=== PATIENT | female | born 1990 | race Caucasian/White ===

== ENCOUNTER 2019-03-22 15:12 | Emergency (ER) | payer BC, OTHER, SELFPAY ==
[~2019-03-22] VITALS: Ht 152.4 cm; Wt 49.1 kg
[~2019-03-22 15:12] MED LIST: /CIPR75TA; CIPR250T3; No Historical Meds; PERC5TAB8; TYLENOL #3; VICO5TAB; vesicare
[2019-03-22 18:15] LABS: BASO # 0.1 10^3/uL (0.0-0.2); BASO % 0.6 % (0.0-1.0); EOS # 0.1 10^3/uL (0.0-0.5); EOS % 0.9 % (0.0-3.0); HEMATOCRIT 44.7 % (36.0-47.0); HEMOGLOBIN 14.5 g/dl (12.0-15.5); LYMPH # 3.4 10^3/uL (1.5-5.0); LYMPH % 39.6 % (24.0-44.0); MEAN CORPUSCULAR HEMOGLOBIN 28.4 pg (27.0-33.0); MEAN CORPUSCULAR HGB CONC 32.4 g/dl (32.0-36.5); MEAN CORPUSCULAR VOLUME 87.6 fl (80.0-96.0); MONO # 0.6 10^3/uL (0.0-0.8); MONO % 7.5 % (0.0-5.0); NEUTROPHILS # 4.4 10^3/uL (1.5-8.5); NEUTROPHILS % 51.2 % (36.0-66.0); PLATELET COUNT, AUTOMATED 278 10^3/uL (150-450); WHITE BLOOD COUNT 8.6 10^3/uL (4.0-10.0)
[2019-03-22] MEDS ORDERED: IBUP-1022 PO (18:32)
[2019-03-22 18:56] LABS: BLOOD UREA NITROGEN 14 MG/DL (7-18); CALCIUM LEVEL 8.6 MG/DL (8.5-10.1); CARBON DIOXIDE LEVEL 27 MEQ/L (21-32); CHLORIDE LEVEL 109 MEQ/L (98-107); CREATININE FOR GFR 0.57 MG/DL (0.55-1.30); GLOMERULAR FILTRATION RATE > 60.0 (>60); GLUCOSE, FASTING 82 MG/DL (70-100); HCG, SERUM QUANTITATIVE 1549 MIU/ML; POTASSIUM SERUM 3.7 MEQ/L (3.5-5.1); SODIUM LEVEL 142 MEQ/L (136-145)
--- NOTE | 2019-03-22 20:26 | REPVR ---
PROCEDURE INFORMATION: Exam: US Duplex Artery or Vein of the Abdominal and/or Reproductive Organs, Limited Ovaries Exam date and time: 03/22/2019 7:21 PM Age: 28 years old Clinical indication: Lmp or gestational age (in weeks): ? ; Antepartum complications; Bleeding; ; Additional info: Passing clots/cramping TECHNIQUE: Imaging protocol: Real-time duplex ultrasound scan of the arterial or venous flow with dent scale, color Doppler flow and spectral waveform analysis with image documentation. Limited duplex exam focused on the ovaries. Duplex images required to evaluate for torsion and other vascular conditions. COMPARISON: No relevant prior studies available. FINDINGS: Right adnexa: Normal duplex of the ovary. Normal Doppler waveforms and color flow. No evidence of ovarian torsion. Left adnexa: Normal duplex of the ovary. Normal Doppler waveforms and color flow. No evidence of ovarian torsion. IMPRESSION: Normal duplex of the ovaries. No evidence of ovarian torsion. PROCEDURE INFORMATION: Exam: US First Trimester, Transabdominal and US , Transvaginal Exam date and time: 03/22/2019 7:21 PM Age: 28 years old Clinical indication: Lmp or gestational age (in weeks): ? ; Antepartum complications; Bleeding; ; Additional info: Passing clots/cramping TECHNIQUE: Imaging protocol: Real-time transabdominal obstetrical ultrasound of the maternal pelvis and a first trimester , less than 14 weeks 0 days, with image documentation. Transvaginal imaging was used for better evaluation of the fetus and adnexa. COMPARISON: No relevant prior studies available. FINDINGS: MATERNAL: Uterus: Transabdominally, the uterus measures 7.8 x 4.1 by 6.2 centimetres. Endovaginally, the uterus measures 8.2 x 4.4 by 5.5 cm. The endometrial stripe is heterogeneous in appearance and measures 1.3 cm in thickness. Scattered areas of blood flow noted within the endometrium on color Doppler examination. No intrauterine . Cervix: Unremarkable. Right adnexa: Transabdominally, the bladder is poorly distended which limits visualization of the uterus and adnexa. Transabdominally, small subcentimeter follicle seen in the right ovary. Endovaginally, the right ovary measures 2.2 by 2.6 x 1.6 cm. Rounded area isoechoic to the adjacent ovary and measuring 1.6 cm in maximum diameter with a hypervascular rim suggests a corpus luteum cyst. Arterial blood flow demonstrated to the right ovary on pulse Doppler examination. Left adnexa: Transabdominally, cyst in the left ovary measures 2.3 cm in diameter and there are multiple internal echoes. Endovaginally, the left ovary measures 3.6 x 2.2 by 2.4 cm and contains a simple follicle measuring 2.1 cm in maximum diameter. Arterial blood flow demonstrated in the left ovary on color Doppler examination. Intraperitoneal: No intraperitoneal free fluid. IMPRESSION: 1. No evidence of intrauterine . In the presence of a positive beta HCG, an empty uterus suggests the possibility of normal early intrauterine , recent miscarriage or ectopic .Serial beta HCG measurements and follow-up recommended 2. Small areas of blood flow within the endometrium could represent retained products of conception. Electronically signed by: Elvira Snow On 03/22/2019 20:25:31 PM
[2019-03-22 21:01] VITALS: BP 129/84
== END 2019-03-22 21:44 | disposition home or self-care (01) ==
LOC: M ED 15:12
DX: O03.9 Complete or unspecified spontaneous abortion without complication (principal); O26.839 Pregnancy related renal disease, unspecified trimester; Z87.442 Personal history of urinary calculi; Z91.89 Other specified personal risk factors, not elsewhere classified

== ENCOUNTER → 2019-09-29 | Outpatient (REF) | payer OTHER, BC ==
[~2019-09-29] MED LIST changes: +IBUP-1022 PO
== END ==
LOC: M LAB REF 13:31
PROVIDERS: ATTEND Dermatology
DX: D22.9 Melanocytic nevi, unspecified (principal)

== ENCOUNTER 2020-05-02 01:09 | Inpatient (IN) | payer BC, OTHER ==
[2020-05-02] VITALS (20 sets, daily range): BP systolic 107–164; BP diastolic 72–93
[~2020-05-02] VITALS: Ht 152.4 cm; Wt 48.1 kg
[2020-05-02] MEDS ORDERED: ETOMIDATE INJ 20MG/10ML VIAL IV STA (01:21)
[2020-05-02] MEDS ORDERED: ROCURONIUM BROMIDE 50 MG/5 ML VIAL IV SCH (01:25)
[2020-05-02] MEDS ORDERED: NS 1,000 ML IV ONE (01:35)
[2020-05-02] MEDS ORDERED: PROPOFOL 1,000 MG/100 ML VIAL As Ordered ONE (01:35)
[2020-05-02] MEDS ORDERED: propofoL 1,000 MG in IV 1 EA IV SCH ×4 (01:40→11:30)
[2020-05-02 01:47] LABS: BASO # 0.1 10^3/uL (0.0-0.2); BASO % 0.7 % (0.0-1.0); EOS # 0.1 10^3/uL (0.0-0.5); EOS % 0.7 % (0.0-3.0); HEMATOCRIT 46.7 % (36.0-47.0); HEMOGLOBIN 15.2 g/dl (12.0-15.5); LYMPH # 2.6 10^3/uL (1.5-5.0); LYMPH % 29.1 % (24.0-44.0); MEAN CORPUSCULAR HGB CONC 32.5 g/dl (32.0-36.5); MONO # 0.7 10^3/uL (0.0-0.8); MONO % 7.9 % (2.0-8.0); NEUTROPHILS # 5.5 10^3/uL (1.5-8.5); NEUTROPHILS % 61.3 % (36.0-66.0); PLATELET COUNT, AUTOMATED 337 10^3/uL (150-450); RED BLOOD COUNT 5.43 10^6/uL (4.00-5.40); WHITE BLOOD COUNT 8.9 10^3/uL (4.0-10.0)
[2020-05-02] MEDS ORDERED: ISOVUE-370 76% 100ML VIAL As Ordered ONE (02:01)
[2020-05-02 02:21] LABS: BLOOD UREA NITROGEN 8 MG/DL (7-18); CALCIUM LEVEL 9.6 MG/DL (8.5-10.1); CARBON DIOXIDE LEVEL 30 MEQ/L (21-32); CHLORIDE LEVEL 110 MEQ/L (98-107); CREATININE FOR GFR 0.71 MG/DL (0.55-1.30); GLOMERULAR FILTRATION RATE > 60.0 (>60); GLUCOSE, FASTING 105 MG/DL (70-100); POTASSIUM SERUM 4.5 MEQ/L (3.5-5.1); SODIUM LEVEL 145 MEQ/L (136-145)
[2020-05-02 02:22] LABS: ALBUMIN 4.6 GM/DL (3.2-5.2); ALT/SGPT 16 U/L (12-78); BILIRUBIN,DIRECT 0.1 MG/DL (0.0-0.2); BILIRUBIN,TOTAL 0.2 MG/DL (0.2-1.0); CK-MB VALUE MASS < 1.0 NG/ML (<3.6); CPK CREATINE PHOSPHOKINASE 97 U/L (26-192); ETHYL ALCOHOL (ETHANOL) 0.279 % (0.000-0.010); MB/CK RELATIVE INDEX 1.03 (< OR =4); TOTAL PROTEIN 8.1 GM/DL (6.4-8.2); TROPONIN I < 0.02 NG/ML (< 0.10)
[2020-05-02 02:25] LABS: AMPHETAMINES LEVEL URINE NEGATIVE (NEGATIVE); BARBITURATES URINE NEGATIVE (NEGATIVE); BENZODIAZEPINES URINE NEGATIVE (NEGATIVE); CANNABINOIDS URINE POSITIVE (NEGATIVE); COCAINE METABOLITE URINE NEGATIVE (NEGATIVE); METHADONE URINE NEGATIVE (NEGATIVE); OPIATES URINE NEGATIVE (NEGATIVE); PHENCYCLIDINE URINE NEGATIVE (NEGATIVE)
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
[2020-05-02 05:18] LABS: RSV AMPLIFICATION NEGATIVE (NEGATIVE)
[2020-05-02] MEDS ORDERED: D5W/0.45% SODIUM CHLORIDE 1,000 ML IV SCH (05:45)
[2020-05-02 06:17] LABS: ABG BASE EXCESS -1.2 (-2.0-2.0); ABG HCO3 21.8 MEQ/L (22.0-26.0); ABG O2 SATURATION 99.3 % (95.0-99.0); ABG PARTIAL PRESSURE CO2 31.7 mmHg (35.0-45.0); ABG PARTIAL PRESSURE O2 209.5 mmHg (75.0-100.0); ABG STANDARD HCO3 23.5 MEQ/L (22.0-26.0); ABG TOTAL CO2 22.8 MEQ/L (22.0-29.0); ABG pH (ARTERIAL) 7.455 UNITS (7.350-7.450)
[2020-05-02] MEDS: MIDAZOLAM INJ 2MG/2ML VIAL (J2250 PER 1MG) IV PRN ×7 (06:41→13:27)
[2020-05-02] MEDS: IPRATROPIUM 0.5MG/ALBUTEROL 2.5MG INH SOL UD 3ML (DUONEB) NEB SCH ×3 (07:11→15:38)
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
[2020-05-02] MEDS: propofoL 1,000 MG in IV 1 EA IV SCH ×2 (08:32→11:52)
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
[2020-05-02] MEDS ORDERED: PANTOPRAZOLE 40MG VIAL (C9113 PER 1) IV SCH (09:00)
[2020-05-02] MEDS ORDERED: CHLORHEXIDINE GLUCONATE 0.12 % 15ML UDC (PERIDEX ORAL RINSE) MT SCH (09:00)
[2020-05-02] MEDS: ENOXAPARIN 40MG/0.4ML SYRINGE (J1650 PER 10MG) SC SCH (09:24)
[2020-05-02] MEDS ORDERED: MORPHINE 2 MG/ML 1ML VIAL (J2270) IV PRN (11:45)
[2020-05-02 12:07] LABS: HEMATOCRIT 38.4 % (36.0-47.0)
[2020-05-02] MEDS ORDERED: ACETAMINOPHEN 325 MG/10.15 ML UDC NG PRN (12:10)
[2020-05-02 12:17] LABS: HEMOGLOBIN 12.8 g/dl (12.0-15.5)
[2020-05-02] MEDS ORDERED: NS 500 ML IV ONE (16:50)
[2020-05-02] MEDS: traMADol 50 MG TAB PO PRN (19:05)
[2020-05-02] MEDS ORDERED: D31000TA2 PO (19:54)
[2020-05-02] MEDS ORDERED: ULTR5TAB PO (19:54)
[2020-05-02] MEDS ORDERED: C 50TAB PO (19:54)
[2020-05-02] MEDS ORDERED: VITMTA PO (19:54)
--- NOTE | 2020-05-02 20:56 | IPNPDOC ---
Text Note Date of Service The patient was seen on 05/02/20. NOTE Per d/w nursing staff the patient was extubated transferred to our service by ; they report that she doesn't need ICU level of care and are requesting downgrade to med/sug. PE: pt appears comfortable is talking on the phone Vital Signs Date Time Temp Pulse Resp B/P (MAP) Pulse Ox O2 Delivery O2 Flow Rate FiO2 05/02/20 01:38 114 05/02/20 01:44 18 99 45 05/02/20 02:30 Ventilator 05/02/20 02:31 132/111 (118) 05/02/20 06:39 99.6 05/02/20 08:30 21.0 #Polysubstance abuse Plan: downgrade to med/surg tele / CIWA order set VS,Fishbone, I+O VS, Fishbone, I+O Laboratory Tests 05/02/20 01:29 05/02/20 11:58 Vital Signs Date Time Temp Pulse Resp B/P (MAP) Pulse Ox O2 Delivery O2 Flow Rate FiO2 05/02/20 19:05 18 97 Room Air 05/02/20 17:00 109 05/02/20 16:30 128/74 (92) 05/02/20 16:00 99.3 05/02/20 15:45 21 05/02/20 08:30 21.0 I&O- Last 24 Hours up to 6 AM 05/02/20 06:00 Intake Total 1100 ml Output Total 850 ml Balance 250 ml JADEN DAI MD May 02, 2020 20:56
[2020-05-02] MEDS ORDERED: LORazepam 2 MG TAB PO PRN (21:00)
[2020-05-02] MEDS: THIAMINE 100 MG TAB PO SCH (21:19)
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
[2020-05-02] MEDS ORDERED: IBUPROFEN 800 MG TAB PO ONE (23:35)
[2020-05-02] MEDS ORDERED: RAMELTEON 8 MG TAB (ROZEREM) PO PRN (23:40)
[2020-05-03] VITALS: BP 135/78
[2020-05-03] MEDS ORDERED: ACETAMINOPHEN 650MG ER TAB (TYLENOL ARTHRITIS) PO PRN (00:45)
[2020-05-03 04:00] VITALS: BP 101/56
[2020-05-03 04:49] LABS: HEMATOCRIT 34.1 % (36.0-47.0); HEMOGLOBIN 11.4 g/dl (12.0-15.5); MEAN CORPUSCULAR HGB CONC 33.4 g/dl (32.0-36.5); MEAN CORPUSCULAR VOLUME 86.8 fl (80.0-96.0); PLATELET COUNT, AUTOMATED 218 10^3/uL (150-450); RED BLOOD COUNT 3.93 10^6/uL (4.00-5.40); WHITE BLOOD COUNT 8.7 10^3/uL (4.0-10.0)
[2020-05-03 05:25] LABS: ALT/SGPT 11 U/L (12-78); BILIRUBIN,TOTAL 0.5 MG/DL (0.2-1.0); BLOOD UREA NITROGEN 10 MG/DL (7-18); CALCIUM LEVEL 7.6 MG/DL (8.5-10.1); CARBON DIOXIDE LEVEL 26 MEQ/L (21-32); CHLORIDE LEVEL 111 MEQ/L (98-107); CREATININE FOR GFR 0.41 MG/DL (0.55-1.30); GLOMERULAR FILTRATION RATE > 60.0 (>60); GLUCOSE, FASTING 114 MG/DL (70-100); POTASSIUM SERUM 3.3 MEQ/L (3.5-5.1); SODIUM LEVEL 142 MEQ/L (136-145); TOTAL PROTEIN 5.6 GM/DL (6.4-8.2)
[2020-05-03 06:00] VITALS: BP 99/55
--- NOTE | 2020-05-03 07:40 | REP ---
INDICATION: RESPIRAORY FAILURE COMPARISON: 05/02/2020 TECHNIQUE: Portable AP view of the chest FINDINGS: Endotracheal tube has been removed. Nasogastric tube has been removed. The mediastinum and cardiac silhouette are stable and within normal limits for portable technique. The lung retana are clear without acute consolidation, effusion, or pneumothorax. Skeletal structures are intact. IMPRESSION: No acute cardiopulmonary process appreciated. <Electronically signed by Lázaro Roberson > 05/03/20 [id number]
[2020-05-03 08:00] VITALS: BP 122/66
[2020-05-03] MEDS ORDERED: POTASSIUM CHLORIDE 10 MEQ SR TABLET PO ONE ×2 (08:15→09:00)
[2020-05-03] MEDS: traMADol 50 MG TAB PO PRN (08:40)
[2020-05-03] MEDS: THIAMINE 100 MG TAB PO SCH (08:42)
[2020-05-03] MEDS: ENOXAPARIN 40MG/0.4ML SYRINGE (J1650 PER 10MG) SC SCH (08:42)
[2020-05-03] MEDS ORDERED: FOLIC ACID 1 MG TAB PO SCH (09:00)
[2020-05-03] MEDS ORDERED: MULTIVITAMINS/MINERALS THERAP 1 TAB PO SCH (09:00)
[2020-05-03] MEDS ORDERED: THIA100TA PO (12:57)
[2020-05-03] MEDS ORDERED: VITMTA PO (12:57)
[2020-05-03] MEDS ORDERED: ACET-683 PO (12:57)
[2020-05-03] MEDS ORDERED: FOLI1TAB11 PO (12:57)
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
[2020-05-03] MEDS ORDERED: traMADol 50 MG TAB PO ONE (16:00)
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
== END 2020-05-03 16:11 | disposition home or self-care (01) | DRG 775 ==
LOC: M ED 01:09 → M ED INP 05:44 → ENRESERV 05:57 → M ICU 06:37
PROVIDERS: ADMIT Internal Medicine Pulmonary Disease; ATTEND Family Medicine
PROC: 5A1935Z Respiratory Ventilation, Less than 24 Consecutive Hours (ICD-10-PCS; principal; 2020-05-02)
DX: F10.129 Alcohol abuse with intoxication, unspecified (principal); J98.8 Other specified respiratory disorders; Z79.899 Other long term (current) drug therapy

== ENCOUNTER → 2020-07-23 | Outpatient (CLI) | payer OTHER, MEDICAID ==
[~2020-07-23] MED LIST changes: +ACET-683 PO; +C 50TAB PO; +D31000TA2 PO; +FOLI1TAB11 PO; +THIA100TA PO; +ULTR5TAB PO; +VITMTA PO
== END ==
LOC: M OUTALCOH 12:48
PROVIDERS: ATTEND Psychiatry & Neurology Psychiatry
DX: Z13.39 Encounter for screening examination for other mental health and behavioral disorders (principal)

== ENCOUNTER → 2020-09-19 | Outpatient (CLI) | payer OTHER, MEDICAID | LOC: M OUTALCOH 07:54 | PROVIDERS: ATTEND Psychiatry & Neurology Psychiatry | DX: Z13.39 Encounter for screening examination for other mental health and behavioral disorders (principal) ==

== ENCOUNTER 2020-10-11 14:00 | Outpatient (RCR) | payer OTHER, MEDICAID | END 2020-10-15 | LOC: M OUTALCOH 14:00 | PROVIDERS: ATTEND Psychiatry & Neurology Psychiatry | DX: F10.10 Alcohol abuse, uncomplicated (principal); F12.10 Cannabis abuse, uncomplicated; F17.200 Nicotine dependence, unspecified, uncomplicated | CPT/HCPCS: H0050 ×2 ==

== ENCOUNTER 2020-10-29 11:11 | Outpatient (RCR) | payer OTHER, MEDICAID | END 2020-11-14 | LOC: M OUTALCOH 11:11 | PROVIDERS: ATTEND Psychiatry & Neurology Psychiatry | DX: F10.10 Alcohol abuse, uncomplicated (principal); F12.10 Cannabis abuse, uncomplicated; F17.200 Nicotine dependence, unspecified, uncomplicated ==

== ENCOUNTER → 2020-11-22 | Outpatient (REF) | payer MEDICAID, OTHER ==
[2020-11-22 15:47] LABS: APPEARANCE, URINE HAZY (CLEAR); BACTERIA, URINE AUTO NEGATIVE (NEGATIVE); BILIRUBIN, URINE AUTO NEGATIVE (NEGATIVE); BLOOD, URINE BLOOD 2+ (NEGATIVE); COLOR, URINE YELLOW (YELLOW); GLUCOSE, URINE (UA) AUTO NEGATIVE (NEGATIVE); KETONE, URINE AUTO TRACE mg/dL (NEGATIVE); LEUKOCYTE ESTERASE, URINE AUTO NEGATIVE (NEGATIVE); NITRITE, URINE AUTO NEGATIVE (NEGATIVE); PROTEIN, URINE AUTO NEGATIVE (NEGATIVE); RBC, URINE AUTO 0 /HPF (0-3); SPECIFIC GRAVITY URINE AUTO 1.006 (1.002-1.035); SQUAMOUS EPITHELIAL CELL UR AU 6 /HPF (0-6); UROBILINOGEN, URINE AUTO 0.2 mg/dL (0.0-2.0); WBC, URINE AUTO 1 /HPF (0-3)
== END ==
LOC: M LAB REF 14:15
PROVIDERS: ATTEND Physician Assistant
DX: R30.0 Dysuria (principal)

== ENCOUNTER → 2021-01-17 | Outpatient (CLI) | payer MEDICAID | LOC: M OUTALCOH 07:42 | PROVIDERS: ATTEND Psychiatry & Neurology Psychiatry | DX: Z03.89 Encounter for observation for other suspected diseases and conditions ruled out (principal) ==

== ENCOUNTER 2021-01-28 15:53 | Outpatient (RCR) | payer MEDICAID | END 2021-02-14 | LOC: M OUTALCOH 15:53 | PROVIDERS: ATTEND Psychiatry & Neurology Psychiatry | DX: F10.10 Alcohol abuse, uncomplicated (principal); F12.10 Cannabis abuse, uncomplicated; F17.200 Nicotine dependence, unspecified, uncomplicated ==

== ENCOUNTER → 2022-02-04 | Outpatient (REF) | payer OTHER, MEDICAID ==
[~2022-02-04] MED LIST changes: -D31000TA2 PO; +VITA100093 PO
== END ==
LOC: M WUC 09:50
PROVIDERS: ATTEND Physician Assistant
DX: J06.9 Acute upper respiratory infection, unspecified (principal); Z20.828 Contact with and (suspected) exposure to other viral communicable diseases

== ENCOUNTER → 2022-03-16 | Outpatient (CLI) | payer BC, OTHER | LOC: M RAD 16:19 | PROVIDERS: ATTEND Internal Medicine Nephrology | DX: N20.0 Calculus of kidney (principal); K57.90 Diverticulosis of intestine, part unspecified, without perforation or abscess without bleeding; N83.209 Unspecified ovarian cyst, unspecified side ==

== ENCOUNTER → 2022-06-18 | Outpatient (REF) | payer OTHER, BC, MEDICAID ==
[2022-06-19 12:41] LABS: PERCENT SATURATION 8.6 % (13.2-45.0)
== END ==
LOC: M LAB REF 12:03
PROVIDERS: ATTEND Internal Medicine
DX: D64.9 Anemia, unspecified (principal)

== ENCOUNTER → 2023-03-24 | Outpatient (CLI) | payer BC, OTHER, MEDICAID ==
[~2023-03-24] MED LIST changes: +ISOVUE-370 76% 100ML VIAL As Ordered ONE
== END ==
LOC: M RAD 08:04
PROVIDERS: ATTEND Nurse Practitioner Family
DX: R59.0 Localized enlarged lymph nodes (principal)
CPT/HCPCS: 70491; 71260; Q9967

== ENCOUNTER 2023-12-07 11:46 | Emergency (ER) | payer BC, OTHER ==
[~2023-12-07] VITALS: Ht 152.4 cm; Wt 45.0 kg
[~2023-12-07 11:46] MED LIST changes: -ISOVUE-370 76% 100ML VIAL As Ordered ONE
[2023-12-07 11:55] VITALS: TEMP 98.1
[2023-12-07 13:18] LABS: HEMATOCRIT 41.9 % (36.0-47.0); HEMOGLOBIN 13.4 g/dl (12.0-15.5); MEAN CORPUSCULAR HEMOGLOBIN 27.2 pg (27.0-33.0); MEAN CORPUSCULAR VOLUME 85.2 fl (80.0-96.0); PLATELET COUNT, AUTOMATED 313 10^3/uL (150-450); RED BLOOD COUNT 4.92 10^6/uL (4.00-5.40); WHITE BLOOD COUNT 13.2 10^3/uL (4.0-10.0)
[2023-12-07] MEDS ORDERED: VYVA20CA PO (13:26)
[2023-12-07] MEDS ORDERED: VYVA40CA3 PO (13:26)
[2023-12-07] MEDS ORDERED: HOME MED LIST COMPLETE! XX SCH (13:30)
[2023-12-07 13:51] LABS: BARBITURATES URINE NEGATIVE (NEGATIVE); BENZODIAZEPINES URINE NEGATIVE (NEGATIVE); METHADONE URINE NEGATIVE (NEGATIVE); OPIATES URINE NEGATIVE (NEGATIVE); PHENCYCLIDINE URINE NEGATIVE (NEGATIVE)
[2023-12-07 13:52] LABS: AMPHETAMINES LEVEL URINE POSITIVE (NEGATIVE); CANNABINOIDS URINE POSITIVE (NEGATIVE); COCAINE METABOLITE URINE POSITIVE (NEGATIVE)
[2023-12-07 13:55] LABS: ETHYL ALCOHOL (ETHANOL) 0.063 % (0.000-0.010)
[2023-12-07 13:56] LABS: SALICYLATE LEVEL < 3.0 MG/DL (<30)
[2023-12-07 13:57] LABS: ALKALINE PHOSPHATASE 55 U/L (46-116); ALT/SGPT 20 U/L (7.0-40); AST/SGOT 18 U/L (<34); BILIRUBIN,DIRECT 0.2 MG/DL (<0.4); BILIRUBIN,TOTAL 0.5 MG/DL (0.3-1.2); BLOOD UREA NITROGEN 10 MG/DL (9-23); CALCIUM LEVEL 7.8 MG/DL (8.5-10.1); CARBON DIOXIDE LEVEL 26 MMOL/L (20-31); CHLORIDE LEVEL 108 MMOL/L (98-107); CREATININE FOR GFR 0.51 MG/DL (0.55-1.30); GLOMERULAR FILTRATION RATE > 60.0 (>60); GLUCOSE, FASTING 86 MG/DL (60-100); POTASSIUM SERUM 5.4 MMOL/L (3.5-5.1); SODIUM LEVEL 141 MMOL/L (136-145); TOTAL PROTEIN 7.3 G/DL (5.7-8.2)
[2023-12-07 13:58] LABS: THYROID STIMULATING HORMONE 0.889 uIU/ML (0.55-4.78)
[2023-12-07 14:01] LABS: HCG, SERUM QUALITATIVE NEGATIVE (NEGATIVE)
[2023-12-07] MEDS: PATIROMER SORBITEX CALCIUM 8.4 GM POWDER PACKET (VELTASSA) PO ONE (15:38)
[2023-12-07 15:56] VITALS: BP 121/69; O2SAT 98
== END 2023-12-07 18:14 | disposition home or self-care (01) ==
LOC: M ED 11:46
DX: Z04.6 Encounter for general psychiatric examination, requested by authority (principal); E87.5 Hyperkalemia; F10.10 Alcohol abuse, uncomplicated; Z79.899 Other long term (current) drug therapy; Z91.89 Other specified personal risk factors, not elsewhere classified

== ENCOUNTER 2024-04-12 14:32 | Emergency (ER) | payer BC, OTHER ==
[~2024-04-12] VITALS: Ht 162.6 cm; Wt 50.9 kg
[~2024-04-12 14:32] MED LIST changes: +VYVA20CA PO; +VYVA40CA3 PO
[2024-04-12 16:23] VITALS: BP 132/81; TEMP 97.7; O2SAT 100
== END 2024-04-12 16:24 | disposition home or self-care (01) ==
LOC: M ED 14:32
DX: S09.90XA Unspecified injury of head, initial encounter (principal); W00.0XXA Fall on same level due to ice and snow, initial encounter; Y92.009 Unspecified place in unspecified non-institutional (private) residence as the place of occurrence of the external cause; Y93.9 Activity, unspecified; Y99.9 Unspecified external cause status; Z79.899 Other long term (current) drug therapy; Z91.89 Other specified personal risk factors, not elsewhere classified

== ENCOUNTER → 2024-09-20 | Outpatient (REF) | payer OTHER | LOC: M LAB REF 17:13 | PROVIDERS: ATTEND Nurse Practitioner Family | DX: M54.2 Cervicalgia (principal) ==

== ENCOUNTER 2024-11-22 01:55 | Inpatient (IN) | payer BC, OTHER ==
[~2024-11-22] VITALS: Ht 152.4 cm; Wt 51.1 kg
[~2024-11-22 01:55] MED LIST changes: -IBUP-1022 PO; +IBUP600T42 PO
[2024-11-22] MEDS: LIDOCAINE 2% MDV 20 ML VIAL SC ONE (02:15)
[2024-11-22 03:01] LABS: PLATELET COUNT, AUTOMATED 247 10^3/uL (150-450)
[2024-11-22 03:29] LABS: ETHYL ALCOHOL (ETHANOL) 0.248 % (0.000-0.010); HCG, SERUM QUALITATIVE NEGATIVE (NEGATIVE)
[2024-11-22 03:31] LABS: ALT/SGPT 41 U/L (7.0-40); AST/SGOT 32 U/L (<34); CALCIUM LEVEL 8.5 MG/DL (8.5-10.1); CARBON DIOXIDE LEVEL 28 MMOL/L (20-31); CHLORIDE LEVEL 107 MMOL/L (98-107); CREATININE FOR GFR 0.62 MG/DL (0.55-1.30); GLOMERULAR FILTRATION RATE > 90.0 (>60); POTASSIUM SERUM 3.8 MMOL/L (3.5-5.1); SALICYLATE LEVEL < 3.0 MG/DL (<30); SODIUM LEVEL 146 MMOL/L (136-145)
[2024-11-22 03:42] LABS: BARBITURATES URINE NEGATIVE (NEGATIVE); BENZODIAZEPINES URINE NEGATIVE (NEGATIVE); CANNABINOIDS URINE NEGATIVE (NEGATIVE); COCAINE METABOLITE URINE NEGATIVE (NEGATIVE); METHADONE URINE NEGATIVE (NEGATIVE); OPIATES URINE NEGATIVE (NEGATIVE); PHENCYCLIDINE URINE NEGATIVE (NEGATIVE)
[2024-11-22 03:55] LABS: AMPHETAMINES LEVEL URINE POSITIVE (NEGATIVE)
[2024-11-22] MEDS: NICOTINE 21 MG/24 HR 1 EA TRANSDERMAL TD ONE ×2 (04:32→13:00)
[2024-11-22] MEDS ORDERED: VYVA1CAP PO (12:41)
[2024-11-22] MEDS ORDERED: VYVA30CA4 PO (12:41)
[2024-11-22] MEDS ORDERED: HOME MED LIST COMPLETE! XX SCH (12:45)
[2024-11-22] MEDS ORDERED: IBUPROFEN 400 MG TAB PO PRN (14:45)
[2024-11-22] MEDS ORDERED: MAALOX 30 ML SUSP *UDC PO PRN (14:45)
[2024-11-22] MEDS ORDERED: traZODone 50 MG TAB PO PRN (14:45)
[2024-11-22] MEDS ORDERED: ACETAMINOPHEN 325 MG TAB PO PRN (14:45)
[2024-11-22] MEDS ORDERED: MOM 30 ML SUSPENSION UDC PO PRN (14:45)
[2024-11-22 18:34] VITALS: BP 149/87
[2024-11-22 18:36] VITALS: BP 149/87
[2024-11-22 20:40] VITALS: BP 137/91; TEMP 98.3; O2SAT 100
[2024-11-23 06:41] VITALS: BP 126/77; TEMP 98; O2SAT 96
[2024-11-23] MEDS: FOLIC ACID 1 MG TAB PO SCH (09:00)
[2024-11-23] MEDS: THIAMINE 100 MG TAB PO SCH (09:00)
[2024-11-23] MEDS: NICOTINE 21 MG/24 HR 1 EA TRANSDERMAL TD SCH (09:40)
[2024-11-23] MEDS: MULTIVITAMINS/MINERALS THERAP 1 TAB PO SCH (09:40)
[2024-11-23 09:45] VITALS: BP 126/77
[2024-11-23 15:47] VITALS: BP 149/93; TEMP 97.9; O2SAT 100
[2024-11-23 17:45] VITALS: BP 149/93
[2024-11-23] MEDS: SERTRALINE HCL 25 MG TABLET PO SCH (20:27)
[2024-11-23 22:01] VITALS: BP 136/82
[2024-11-24 06:25] VITALS: BP 128/78
[2024-11-24 06:57] VITALS: BP 123/85; TEMP 97.8; O2SAT 98
[2024-11-24] MEDS ORDERED: SERT25TA21 PO (11:28)
== END 2024-11-24 16:24 | disposition home or self-care (01) | DRG 754 ==
LOC: M ED 01:55 → M ED INP 14:44 → M PSY 20:39
PROVIDERS: ADMIT General Practice; ATTEND General Practice
DX: F32.A Depression, unspecified (principal); F10.920 Alcohol use, unspecified with intoxication, uncomplicated; F90.9 Attention-deficit hyperactivity disorder, unspecified type; F17.210 Nicotine dependence, cigarettes, uncomplicated; Z79.899 Other long term (current) drug therapy; Z91.048 Other nonmedicinal substance allergy status; S61.512A Laceration without foreign body of left wrist, initial encounter; W26.8XXA Contact with other sharp object(s), not elsewhere classified, initial encounter; Y92.009 Unspecified place in unspecified non-institutional (private) residence as the place of occurrence of the external cause; Z91.52 Personal history of nonsuicidal self-harm; N18.2 Chronic kidney disease, stage 2 (mild)